=== PATIENT | male | born 1960 | race Caucasian/White ===

== ENCOUNTER 2018-11-25 00:01 | Emergency (ER) | payer OTHER ==
[~2018-11-25] VITALS: Ht 180.3 cm; Wt 79.4 kg
[2018-11-25] MEDS ORDERED: ORPHENADRINE C100 MG PO (03:29)
[2018-11-25] MEDS ORDERED: IBUPROFEN800 MG PO (03:29)
[2018-11-25] MEDS ORDERED: MEDROLPACK PO (03:29)
== END 2018-11-25 03:49 | disposition home or self-care (01) ==
LOC: ER 00:01
DX: M25.531 Pain in right wrist (principal)